=== PATIENT | female | born 1955 | race Caucasian/White ===

== ENCOUNTER 2021-04-23 19:16 | Emergency (ER) | payer SELFPAY ==
[2021-04-23 19:35] VITALS: BP 118/76; PULSE 97; RESP 18; TEMP 98.6
--- NOTE | 2021-04-23 20:25 | ED ---
General Adult HPI - General Chief complaint: Recheck/Abnormal Lab/Rx Stated complaint: wants covid test Time Seen by Provider: 04/23/21 20:02 Source: patient Mode of arrival: ambulatory - History of Present Illness Initial comments: 66-year-old female who presents to the emergency department for a Covid swab. Patient states that she is asymptomatic, she is attempting to get into [facility] and needs to get a Covid swab. - Related Data Allergies Allergy/AdvReac Type Severity Reaction Status Date / Time No Known Allergies Allergy Verified 04/23/21 19:35 Review of Systems ROS Statement: Those systems with pertinent positive or pertinent negative responses have been documented in the HPI. ROS Other: All systems not noted in ROS Statement are negative. Past Medical History Past Medical History: Hyperlipidemia, Hypertension, Thyroid Disorder History of Any Multi-Drug Resistant Organisms: None Reported Past Surgical History: No Surgical Hx Reported Past Psychological History: No Psychological Hx Reported Smoking Status: Never smoker Past Alcohol Use History: Occasional Past Drug Use History: None Reported Course Vital Signs 04/23/21 19:31 Temperature 98.6 F Pulse Rate 97 Respiratory 18 Rate Blood Pressure 118/76 O2 Sat by Pulse 96 Oximetry Medical Decision Making - Medical Decision Making Upon arrival patient is placed into the hallway time. She has no symptoms. Covid swab is performed and is negative. She is given copies of her results and will be discharged - Lab Data Lab Results 04/23/21 Range/Units 19:36 Coronavirus (PCR) Not Detected (Not Detectd) Disposition Clinical Impression: Normal exam Disposition: HOME SELF-CARE Condition: Stable Instructions (If sedation given, give patient instructions): Normal Exam (ED) Additional Instructions: Your covid test was negative. Is patient prescribed a controlled substance at d/c from ED?: No Referrals: None,Stated [Primary Care Provider] - 1-2 days Time of Disposition: 20:25
== END 2021-04-23 20:57 | disposition home or self-care (01) ==
LOC: EC 19:16
DX: Z20.822 Contact with and (suspected) exposure to COVID-19 (principal); I10 Essential (primary) hypertension; E78.5 Hyperlipidemia, unspecified
CPT/HCPCS: 87635; 99282